=== PATIENT | female | born 1995 | race Caucasian/White ===

== ENCOUNTER 2024-03-30 02:00 | Inpatient (IN) | payer BC ==
[2024-03-30] MEDS ORDERED: Lidocaine 1% (PF) 30 ML VIAL ONE (03:06)
[2024-03-30] MEDS ORDERED: Oxytocin 30 units/NS 500 ML 500 ML ONE (03:07)
[2024-03-30] MEDS ORDERED: Methylergonovine 0.2 MG/ML VIAL IM PRN (03:41)
[2024-03-30] MEDS ORDERED: Carboprost 250 MCG/ML AMP IM PRN (03:41)
[2024-03-30] MEDS ORDERED: Tranexamic Acid 1,000 MG/10 ML VIAL IVP PRN (03:41)
[2024-03-30] MEDS ORDERED: Misoprostol 200 MCG TAB PR PRN (03:41)
[2024-03-30] MEDS ORDERED: hydrALAZINE 20 MG/ML VIAL SLOW IVP PRN ×3 (03:41→12:15)
[2024-03-30] MEDS ORDERED: Promethazine HCl 25 MG/ML VIAL IM PRN ×2 (03:41→12:15)
[2024-03-30] MEDS ORDERED: Lidocaine 1% (PF) 30 ML VIAL SC PRN (03:41)
[2024-03-30] MEDS ORDERED: Ondansetron PF 4 MG/2 ML Vial IVP PRN ×2 (03:41→12:15)
[2024-03-30] MEDS ORDERED: Diphenoxylate HCl/Atropine Tablet PO PRN (03:41)
[2024-03-30 04:07] LABS: #Basophils 0.04 10x3/uL (0.0-0.2); #Eosinophils 0.01 10x3/uL (0.0-0.5); #Monocytes 1.04 10x3/uL (0.0-1.1); #Neutrophils 14.85 10x3/uL (1.5-8.4); %Basophils 0.2 % (0.0-2.0); %Eosinophils 0.1 % (0.0-6.0); %Lymphocytes 10.5 % (18.0-47.0); %Monocytes 5.8 % (0.0-10.0); %Neutrophils 82.8 % (40.0-75.0); Hematocrit 35.6 % (34.9-44.5); Hemoglobin 12.4 g/dL (12.0-15.5); Mean Corpuscular HGB CONC 34.8 g/dL (32.0-36.0); Mean Platelet Volume 11.1 fL (7.4-10.4); Platelet Count 294 10x3/uL (150-450); RBC Distribution Width 14.3 % (11.5-14.5); White Blood Cell (WBC) Count 17.9 10x3/uL (3.5-10.5)
[2024-03-30 04:25] LABS: ALT (SGPT) 22 U/L (8-55); AST (SGOT) 32 U/L (5-34); Albumin 2.9 g/dL (3.5-5.0); Alkaline Phosphatase 134 U/L (40-110); Anion Gap 23 mmol/L (10-20); BUN (Urea Nitrogen) 9 mg/dL (7.0-18.7); Bilirubin, Total 0.3 mg/dL (0.2-1.2); Calc. Creatinine Clearance 0 mL/min (70-130); Calcium 8.7 mg/dL (7.8-10.44); Carbon Dioxide 10 mmol/L (22-29); Chloride 105 mmol/L (98-107); Estimated GFR 102; Globulin 3.6 g/dL (2.4-3.5); Glucose 119 mg/dL (70-105); Potassium 3.5 mmol/L (3.5-5.1); Protein, Total 6.5 g/dL (6.0-8.3); Sodium 134 mmol/L (136-145)
[2024-03-30 04:42] LABS: HIV 1/2 INDEX 0.14 S/CO (<1.00)
[2024-03-30 04:43] LABS: HBsAg Index 0.18 S/CO (0-0.99); HIV (1/2) Antibody/Antigen NonReactive (NonReactive); Hep B Surf Ag - L&D NonReactive S/CO (NonReactive); Syphilis Antibody Nonreactive (Nonreactive); Syphilis Antibody Index 0.26 S/CO (<1.00 Non-Reactive)
[2024-03-30 04:44] VITALS: BMI 28.1
[2024-03-30] MEDS: Oxytocin 30 units/NS 500 ML 500 ML IV SCH (06:00)
[2024-03-30] MEDS: Ibuprofen 800 MG TAB PO PRN (06:04)
[2024-03-30] MEDS ORDERED: Milk Of Magnesia 30 ML UDCUP PO PRN ×2 (06:36→12:15)
[2024-03-30] MEDS ORDERED: Bisacodyl 10 MG SUPP PR PRN ×2 (06:36→12:15)
[2024-03-30] MEDS: Ferrous Sulfate 325 MG TAB PO SCH ×2 (07:21→15:57)
[2024-03-30] MEDS: Boostrix 0.5 ML (Tdap) VIAL (>/=7 yrs of age) IM ONE (07:21)
[2024-03-30] MEDS: Docusate 100 MG CAP PO SCH (08:35)
[2024-03-30] MEDS ORDERED: Misoprostol 200 MCG TAB VAG PRN (12:12)
[2024-03-30] MEDS ORDERED: Boostrix 0.5 ML (Tdap) VIAL (>/=7 yrs of age) IM SCH (12:15)
[2024-03-30] MEDS: HYDROcodone/Acetaminophen 5/325 mg Tablet PO PRN ×2 (12:22→19:26)
[2024-03-30] MEDS ORDERED: Oxytocin 30 units/NS 500 ML 1,000 ML IV SCH (12:30)
[2024-03-30] MEDS: Ibuprofen 800 MG TAB PO SCH (13:35)
[2024-03-31] MEDS: Docusate 100 MG CAP PO SCH (03:12)
[2024-03-31 06:35] VITALS: TEMP 97.5
[2024-03-31 08:10] VITALS: BP 133/92
== END 2024-03-31 18:43 | disposition home or self-care (01) | DRG 807 ==
LOC: CSHLD/OP 02:00 → CSHLD 03:44 → CSHPP 06:15
PROVIDERS: ADMIT Student in an Organized Health Care Education/Training Program; ATTEND Student in an Organized Health Care Education/Training Program
PROC: 10E0XZZ Delivery of Products of Conception, External Approach (ICD-10-PCS; principal; 2024-03-30)
DX: O26.893 Other specified pregnancy related conditions, third trimester (principal); Z37.0 Single live birth; Z67.11 Type A blood, Rh negative; Z3A.36 36 weeks gestation of pregnancy; O70.1 Second degree perineal laceration during delivery; O71.82 Other specified trauma to perineum and vulva
CPT/HCPCS: 36415; 80053; 85025; 86780; 86850; 86870; 86900; 86901; 86922; 87340; 87389; 99285; J2590